=== PATIENT | female | born 1955 | race African-American/Black ===

== ENCOUNTER 2018-05-24 03:47 | Inpatient (IN) | payer BC ==
[~2018-05-24] VITALS: Ht 175.3 cm; Wt 122.5 kg
[2018-05-24] MEDS ORDERED: ONDANSETRON HCL 4MG/2ML INJ IV STA (05:19)
[2018-05-24] MEDS ORDERED: MORPHINE SULFATE 4 MG/ML CPJ (NOT FOR IM USE) IV STA (05:19)
[2018-05-24 06:23] LABS: BASOPHILS % 0.4 % (0.0-2.0); EOSINOPHILS % 1.8 % (0.0-5.0); HEMATOCRIT. 38.2 % (36.0-48.0); HEMOGLOBIN. 12.4 g/dL (12.0-16.0); LYMPHOCYTES % 15.7 % (20.0-50.0); MEAN CORPUSCULAR HEMOGLOBIN 28.8 pg (28.0-32.0); MEAN CORPUSCULAR VOLUME 88.7 fL (81.0-99.0); MEAN PLATELET VOLUME 10.3 fl (7.4-10.4); MONOCYTES % 8.8 % (2.0-8.0); NEUTROPHILS % 73.3 % (40.0-76.0); PLATELET 213 x1000/uL (130-400); RED CELL DISTRIBUTION WIDTH 14.8 % (11.6-14.6)
[2018-05-24 06:26] LABS: CLARITY URINE CLOUDY (CLEAR); COLOR URINE YELLOW (YELLOW); KETONES URINE TRACE (NEGATIVE); LEUKOCYTE ESTERASE URINE TRACE (NEGATIVE); NITRITE URINE NEGATIVE (NEGATIVE); OCCULT BLOOD URINE NEGATIVE (NEGATIVE); PH URINE 5.5 (4.5-8.0); PROTEIN URINE 1+ (NEGATIVE); SPECIFIC GRAVITY URINE 1.027 (1.005-1.030)
[2018-05-24 06:29] LABS: CHLORIDE 104 mEq/L (98-107)
[2018-05-24 06:32] LABS: PROTHROMBIN TIME 10.2 sec (9.1-11.1)
[2018-05-24] MEDS ORDERED: MORPHINE SULFATE 4 MG/ML CPJ (NOT FOR IM USE) IV PRN (08:15)
[2018-05-24] MEDS ORDERED: ONDANSETRON HCL 4MG/2ML INJ IV PRN ×2 (08:15→13:15)
[2018-05-24] MEDS ORDERED: BUPIVACAINE HCL 0.5% (5MG/ML) 50ML ONE (08:18)
[2018-05-24] MEDS ORDERED: SKIN ADHESIVE 0.7 GM EA TOP ONE (08:18)
[2018-05-24] MEDS ORDERED: MIDAZOLAM HCL 2 MG/2 ML VIAL ONE (08:35)
[2018-05-24] MEDS ORDERED: FENTANYL CITRATE/PF 50MCG/ML 2ML VIAL ONE ×4 (08:35→11:53)
[2018-05-24] MEDS ORDERED: ROCURONIUM BROMIDE 10MG/ML VIAL 5ML IV ONE (08:36)
[2018-05-24] MEDS ORDERED: SUCCINYLCHOLINE CHLORIDE 200MG/10ML IV ONE (08:36)
[2018-05-24] MEDS ORDERED: LIDOCAINE HCL 1% 20ML VIAL (Pyxis) INJ ONE (08:36)
[2018-05-24] MEDS ORDERED: PROPOFOL 200MG/20ML VIAL IV ONE (08:36)
[2018-05-24] MEDS ORDERED: PHENYLEPHRINE HCL 10 MG/ML 1ML (IV VIAL) IV ONE (08:47)
[2018-05-24] MEDS ORDERED: ESMOLOL HCL 10MG/ML 10ML VIAL IV ONE (08:53)
[2018-05-24] MEDS ORDERED: SODIUM CHLORIDE 0.9% 10ML VIAL ONE ×2 (09:09→10:04)
[2018-05-24] MEDS ORDERED: EPHEDRINE SULFATE 50MG/ML VIAL ONE (09:09)
[2018-05-24] MEDS ORDERED: BUPIVACAINE HCL 0.5% 290 ML in ON-Q PUMP (PM015=P270X4D) IR SCH (09:15)
[2018-05-24] MEDS ORDERED: BUPIVACAINE HCL 0.5% 290 ML in ON-Q PM025 DRUG DELIV DEVICE 1 EA IR SCH (09:15)
[2018-05-24] MEDS ORDERED: LEVOFLOXACIN 500MG PREMIX 100 ML IV SCH (09:45)
[2018-05-24] MEDS ORDERED: GLYCOPYRROLATE 0.2 MG/ML 2ML VIAL ONE (09:57)
[2018-05-24] MEDS ORDERED: NEOSTIGMINE METHYLSULFATE 1MG/ML 10 ML VIAL ONE (09:57)
[2018-05-24] MEDS ORDERED: HYDRALAZINE 20MG/ML VIAL ONE (10:04)
[2018-05-24] MEDS ORDERED: DEXAMETHASONE 4MG/ML 1ML VIAL ONE (10:15)
[2018-05-24] MEDS: HYDROMORPHONE HCL/PF 2MG/ML CPJ IV PRN ×7 (11:04→12:27)
[2018-05-24] MEDS ORDERED: DEXT 5%/0.45% NACL 1000ML 1,000 ML IV SCH (13:01)
[2018-05-24] MEDS ORDERED: HYDROMORPHONE HCL/PF 2MG/ML CPJ IV PRN (13:15)
[2018-05-24] MEDS ORDERED: ACETAMINOPHEN 650MG SUPP PR PRN (13:15)
[2018-05-24 13:45] VITALS: BP 190/84
[2018-05-24] MEDS ORDERED: LEVOFLOXACIN 500MG PREMIX 100 ML IV NR (15:00)
[2018-05-24] MEDS: DEXT 5%/0.45% NACL KCL 20MEQ/L 1,000 ML IV SCH (15:27)
[2018-05-24] MEDS: METRONIDAZOLE 500 MG PREMIX 100 ML IV SCH ×2 (15:27→23:37)
[2018-05-24 16:00] VITALS: BP 156/80
[2018-05-24] MEDS ORDERED: PNEUMOCOCCAL 23-VAL P-SAC VAC 0.5 ML IM ONE (16:15)
[2018-05-24 20:08] VITALS: BP 135/65
[2018-05-24] MEDS: FAMOTIDINE 20MG/2ML VIAL IV SCH (20:55)
[2018-05-24] MEDS: ACETAMINOPHEN 650MG SUPP PR PRN (22:11)
[2018-05-25] VITALS: BP 136/56
[2018-05-25] MEDS ORDERED: DEXTROSE 50% WATER 50ML SYRINGE IV PRN (02:00)
[2018-05-25] MEDS: DEXT 5%/0.45% NACL KCL 20MEQ/L 1,000 ML IV SCH ×2 (03:37→18:16)
[2018-05-25 04:00] VITALS: BP 146/60
[2018-05-25 06:19] LABS: BASOPHILS % 0.2 % (0.0-2.0); EOSINOPHILS % 0.4 % (0.0-5.0); HEMATOCRIT. 34.3 % (36.0-48.0); HEMOGLOBIN. 11.2 g/dL (12.0-16.0); LYMPHOCYTES % 10.2 % (20.0-50.0); MEAN CORPUSCULAR HEMOGLOBIN 28.8 pg (28.0-32.0); MEAN CORPUSCULAR VOLUME 88.4 fL (81.0-99.0); MONOCYTES % 10.9 % (2.0-8.0); NEUTROPHILS % 78.3 % (40.0-76.0); PLATELET 213 x1000/uL (130-400); RED BLOOD CELL COUNT 3.88 mill/uL (4.2-5.4)
[2018-05-25] MEDS: BLOOD SUGAR DIAGNOSTIC STRIP TEST SCH ×4 (06:32→21:00)
[2018-05-25 06:50] LABS: CHLORIDE 109 mEq/L (98-107)
[2018-05-25] MEDS ORDERED: INSULIN LISPRO 100 UNITS/ML SUBCUT SCH (07:20)
[2018-05-25] MEDS: INSULIN LISPRO (HIGH DOSE) 100 UNITS/ML SUBCUT SCH ×4 (07:50→21:00)
[2018-05-25 08:00] VITALS: BP 140/70
[2018-05-25] MEDS ORDERED: LEVOFLOXACIN 500MG PREMIX 100 ML IV NR (08:00)
[2018-05-25] MEDS: METRONIDAZOLE 500 MG PREMIX 100 ML IV SCH (09:20)
[2018-05-25] MEDS: FAMOTIDINE 20MG/2ML VIAL IV SCH ×2 (09:20→23:15)
[2018-05-25] MEDS: LEVOFLOXACIN 500MG PREMIX 100 ML IV SCH (11:38)
[2018-05-25 12:00] VITALS: BP 155/75
[2018-05-25] MEDS: ACETAMINOPHEN 650MG SUPP PR PRN (12:06)
[2018-05-25] MEDS ORDERED: ATOR80TA MT (12:14)
[2018-05-25] MEDS ORDERED: ESOM20CA MT (12:18)
[2018-05-25] MEDS ORDERED: TRIA1TAB92 MT (12:18)
[2018-05-25] MEDS ORDERED: UBID100C12 PO (12:18)
[2018-05-25 15:58] VITALS: BP 167/67
[2018-05-25 20:00] VITALS: BP 154/64
[2018-05-26] VITALS: BP 152/64
[2018-05-26] MEDS: DEXT 5%/0.45% NACL KCL 20MEQ/L 1,000 ML IV SCH ×2 (02:37→16:11)
[2018-05-26 04:00] VITALS: BP 156/77
[2018-05-26 06:57] LABS: BASOPHILS % 0.3 % (0.0-2.0); HEMATOCRIT. 32.6 % (36.0-48.0); HEMOGLOBIN. 10.8 g/dL (12.0-16.0); LYMPHOCYTES % 13.4 % (20.0-50.0); MEAN CORPUSCULAR HEMOGLOBIN 29.2 pg (28.0-32.0); MEAN CORPUSCULAR VOLUME 88.2 fL (81.0-99.0); MEAN PLATELET VOLUME 9.9 fl (7.4-10.4); MONOCYTES % 9.5 % (2.0-8.0); NEUTROPHILS % 69.8 % (40.0-76.0); PLATELET 198 x1000/uL (130-400); RED BLOOD CELL COUNT 3.69 mill/uL (4.2-5.4)
[2018-05-26 07:05] LABS: CHLORIDE 107 mEq/L (98-107)
[2018-05-26] MEDS: INSULIN LISPRO (HIGH DOSE) 100 UNITS/ML SUBCUT SCH ×4 (07:50→21:00)
[2018-05-26] MEDS: BLOOD SUGAR DIAGNOSTIC STRIP TEST SCH ×4 (07:52→21:00)
[2018-05-26 08:00] VITALS: BP 180/76
[2018-05-26] MEDS: FAMOTIDINE 20MG/2ML VIAL IV SCH (09:11)
[2018-05-26] MEDS ORDERED: CLONIDINE HCL 0.1MG/24HR PATCH TD SCH (10:00)
[2018-05-26] MEDS: LEVOFLOXACIN 500MG PREMIX 100 ML IV SCH (11:52)
[2018-05-26 12:00] VITALS: BP 138/62
[2018-05-26] MEDS ORDERED: KCL 20MEQ/100ML PREMIX 100 ML IV NR (14:00)
[2018-05-26 16:00] VITALS: BP 137/98
[2018-05-26 20:00] VITALS: BP 170/63
[2018-05-27] VITALS (7 sets, daily range): BP systolic 122–184; BP diastolic 58–90
[2018-05-27] MEDS: FAMOTIDINE 20MG/2ML VIAL IV SCH ×3 (05:31→22:49)
[2018-05-27] MEDS: DEXT 5%/0.45% NACL KCL 20MEQ/L 1,000 ML IV SCH ×3 (05:32→22:49)
[2018-05-27] MEDS: BLOOD SUGAR DIAGNOSTIC STRIP TEST SCH ×4 (05:33→21:00)
[2018-05-27] MEDS: INSULIN LISPRO (HIGH DOSE) 100 UNITS/ML SUBCUT SCH ×4 (05:40→21:00)
[2018-05-27 07:07] LABS: CHLORIDE 106 mEq/L (98-107)
[2018-05-27 08:16] LABS: BASOPHILS % 0.2 % (0.0-2.0); EOSINOPHILS % 8.2 % (0.0-5.0); HEMATOCRIT. 32.2 % (36.0-48.0); HEMOGLOBIN. 10.6 g/dL (12.0-16.0); LYMPHOCYTES % 16.3 % (20.0-50.0); MEAN CORPUSCULAR HEMOGLOBIN 29.1 pg (28.0-32.0); MEAN CORPUSCULAR VOLUME 88.1 fL (81.0-99.0); MONOCYTES % 9.7 % (2.0-8.0); NEUTROPHILS % 65.6 % (40.0-76.0); PLATELET 201 x1000/uL (130-400); RED BLOOD CELL COUNT 3.65 mill/uL (4.2-5.4); RED CELL DISTRIBUTION WIDTH 14.7 % (11.6-14.6)
[2018-05-27] MEDS: LEVOFLOXACIN 500MG PREMIX 100 ML IV SCH (11:54)
[2018-05-27] MEDS ORDERED: POTASSIUM CHLORIDE 20MEQ TABLET SR PO NR (21:00)
[2018-05-28 04:00] VITALS: BP 129/62
[2018-05-28] MEDS: BLOOD SUGAR DIAGNOSTIC STRIP TEST SCH ×4 (06:31→21:59)
[2018-05-28] MEDS: INSULIN LISPRO (HIGH DOSE) 100 UNITS/ML SUBCUT SCH ×4 (06:31→21:00)
[2018-05-28] MEDS: DEXT 5%/0.45% NACL KCL 20MEQ/L 1,000 ML IV SCH ×2 (06:32→21:59)
[2018-05-28 08:00] VITALS: BP 142/61
[2018-05-28] MEDS: FAMOTIDINE 20MG/2ML VIAL IV SCH ×2 (09:00→21:59)
[2018-05-28 11:31] VITALS: BP 131/67
[2018-05-28] MEDS: LEVOFLOXACIN 500MG PREMIX 100 ML IV SCH (12:13)
[2018-05-28 16:00] VITALS: BP 152/83
[2018-05-29] MEDS: DEXT 5%/0.45% NACL KCL 20MEQ/L 1,000 ML IV SCH ×2 (02:12→12:35)
[2018-05-29 04:00] VITALS: BP 148/79
[2018-05-29] MEDS: BLOOD SUGAR DIAGNOSTIC STRIP TEST SCH ×2 (06:27→12:35)
[2018-05-29] MEDS: INSULIN LISPRO (HIGH DOSE) 100 UNITS/ML SUBCUT SCH ×2 (06:27→12:35)
[2018-05-29] MEDS: FAMOTIDINE 20MG/2ML VIAL IV SCH (08:59)
[2018-05-29] MEDS: LEVOFLOXACIN 500MG PREMIX 100 ML IV SCH (09:57)
[2018-05-29 11:26] VITALS: BP 126/81
[2018-05-29 12:00] VITALS: BP 124/78
[2018-05-30] MEDS ORDERED: LEVOFLOXACIN 500MG TABLET PO SCH (11:00)
== END 2018-05-29 15:50 | disposition home or self-care (01) | DRG 330 ==
LOC: ER 03:47 → ORIP 10:58 → 6EST 12:50
PROVIDERS: ADMIT Hospitalist; ATTEND Hospitalist
PROC: 0DTK0ZZ Resection of Ascending Colon, Open Approach (ICD-10-PCS; principal; 2018-05-24)
DX: K56.2 Volvulus (principal); R65.10 Systemic inflammatory response syndrome (SIRS) of non-infectious origin without acute organ dysfunction; K91.89 Other postprocedural complications and disorders of digestive system; E11.9 Type 2 diabetes mellitus without complications; K21.9 Gastro-esophageal reflux disease without esophagitis; I10 Essential (primary) hypertension; E78.5 Hyperlipidemia, unspecified; K56.7 Ileus, unspecified; E78.00 Pure hypercholesterolemia, unspecified; Z90.49 Acquired absence of other specified parts of digestive tract; Z88.9 Allergy status to unspecified drugs, medicaments and biological substances; E66.9 Obesity, unspecified; K42.9 Umbilical hernia without obstruction or gangrene; Z68.39 Body mass index [BMI] 39.0-39.9, adult
CPT/HCPCS: 36415; 74176; 82962; 83735; 88307; 90732; 96374; 97116; 97162; 99285; C1893; J0330; J0360; J1100; J1170; J1956; J2250; J2270; J2370; J2405; J2704; J2710; J3010; J3480; J3490